=== PATIENT | female | born 1995 | race Caucasian/White ===

== ENCOUNTER → 2017-12-12 | Outpatient (REF) | payer OTHER | LOC: M LAB REF 12:14 | DX: B37.84 Candidal otitis externa (principal) ==

== ENCOUNTER 2018-04-27 11:44 | Inpatient (IN) | payer OTHER ==
[2018-04-27 13:23] LABS: BASO % 0.1 % (0.0-1.0); EOS # 0.2 10^3/uL (0.0-0.50); EOS % 1.6 % (0.0-3.0); HEMATOCRIT 40.9 % (36.0-47.0); HEMOGLOBIN 14.5 g/dl (12.0-15.5); IMMATURE GRANULOCYTE % 0.5 % (0-3.0); LYMPH # 2.5 10^3/uL (1.5-6.5); LYMPH % 17.3 % (24.0-44.0); MEAN CORPUSCULAR HEMOGLOBIN 32.2 pg (27.0-33.0); MEAN CORPUSCULAR HGB CONC 35.5 g/dl (32.0-36.5); MEAN CORPUSCULAR VOLUME 90.7 fl (80.0-96.0); MONO # 0.8 10^3/uL (0.0-0.8); MONO % 5.3 % (0.0-5.0); NEUTROPHILS # 10.7 10^3/uL (1.8-7.7); NEUTROPHILS % 75.2 % (36.0-66.0); PLATELET COUNT, AUTOMATED 204 10^3/uL (150-450); RED BLOOD COUNT 4.51 10^6/uL (4.00-5.40); RED CELL DISTRIBUTION WIDTH 12.3 % (11.5-14.5); WHITE BLOOD COUNT 14.3 10^3/uL (4.0-10.0)
[2018-04-27] MEDS ORDERED: FENTANYL 2MCG/ML ROPIVACAINE 0.2% IN 0.9% NACL 200ML IVBAG As Ordered (14:40)
[2018-04-27] MEDS ORDERED: OXYTOCIN 30 UNITS IN 0.9% NaCl 500ML IV BAG (J2590) As Ordered (14:41)
[2018-04-27] MEDS: OXYTOCIN DRIP 30 UNITS in APPROPRIATE DILUENT 1 EA IV (15:43)
[2018-04-27] MEDS: LIDOCAINE 1% MDV 20ML VIAL SC (15:43)
[2018-04-27] MEDS ORDERED: DOCUSATE SODIUM 100 MG CAP PO (15:45)
[2018-04-27] MEDS ORDERED: RHOGAM 300 MCG (1500 IU) INJ (J2790) IM (15:45)
[2018-04-27] MEDS: MORPHINE 10 MG/ML 1ML VIAL (J2270) IV (15:45)
[2018-04-27] MEDS ORDERED: DIBUCAINE 1% OINTMENT 30GM TOP (15:45)
[2018-04-27] MEDS ORDERED: ONDANSETRON 4MG/2ML VIAL (J2405) IV ×2 (15:45→21:30)
[2018-04-27] MEDS ORDERED: MEASLES,MUMPS,RUBELLA VACCINE INJ (MMR-II) (90707) SC (15:45)
[2018-04-27] MEDS: METHYLERGONOVINE MALEATE 0.2 MG/ML VIAL (J2210) IM (18:52)
[2018-04-27] MEDS ORDERED: MIDAZOLAM INJ 2 MG/2 ML VIAL (J2250) As Ordered (19:41)
[2018-04-27] MEDS ORDERED: PROPOFOL 200 MG/20 ML VIAL As Ordered (19:41)
[2018-04-27] MEDS ORDERED: fentaNYL 100 MCG/2 ML INJECTION (J3010) As Ordered (19:42)
[2018-04-27] MEDS ORDERED: LIDOCAINE 2% W/EPIN INJ 20ML **PRES FREE As Ordered (19:48)
[2018-04-27] MEDS: ceFAZolin 1GM INJ (J0690 PER 500MG) As Ordered (19:57)
[2018-04-27] MEDS ORDERED: ceFAZolin SOD 1 GM in D5W MINI-BAG PLUS 50 ML IV (20:00)
[2018-04-27] MEDS ORDERED: OXYTOCIN INJ 10 UNITS/ML VIAL (J2590) As Ordered ×3 (20:13→20:14)
[2018-04-27] MEDS: ESTROGENS VAGINAL CREAM 30GM As Ordered (20:52)
[2018-04-27] MEDS: LR 1,000 ML IV (21:30)
[2018-04-27] MEDS ORDERED: fentaNYL 100 MCG/2 ML INJECTION (J3010) IV (21:30)
[2018-04-27] MEDS: diphenhydrAMINE 25 MG CAP PO (22:56)
[2018-04-27] MEDS: ACETAMINOPHEN TAB 650MG DOSE (2X325MG) PO (22:57)
[2018-04-28 01:11] LABS: IMMEDIATE SPIN CROSSMATCH 1 2
[2018-04-28] MEDS: ceFAZolin SOD 1 GM in D5W MINI-BAG PLUS 50 ML IV ×2 (04:45→13:09)
[2018-04-28] MEDS: IBUPROFEN 800 MG TAB PO ×2 (06:27→19:58)
[2018-04-28 06:34] LABS: MEAN CORPUSCULAR HEMOGLOBIN 30.9 pg (27.0-33.0); MEAN CORPUSCULAR HGB CONC 35.2 g/dl (32.0-36.5); MEAN CORPUSCULAR VOLUME 87.9 fl (80.0-96.0); PLATELET COUNT, AUTOMATED 165 10^3/uL (150-450); RED CELL DISTRIBUTION WIDTH 13.2 % (11.5-14.5); WHITE BLOOD COUNT 14.1 10^3/uL (4.0-10.0)
[2018-04-28 06:45] LABS: HEMOGLOBIN 10.2 g/dl (12.0-15.5)
[2018-04-28] MEDS: PRENATAL VITAMINS CHEWABLE TABLET PO (10:38)
[2018-04-28] MEDS: ACETAMINOPHEN 500 MG TAB PO (18:47)
[2018-04-29] MEDS: IBUPROFEN 800 MG TAB PO (04:24)
[2018-04-29] MEDS: PRENATAL VITAMINS CHEWABLE TABLET PO (08:19)
== END 2018-04-29 13:00 | disposition home or self-care (01) | DRG 774 ==
LOC: M LDO 11:44 → M LDI 12:39 → M OBS 17:06
PROVIDERS: Obstetrics & Gynecology
PROC: 10E0XZZ Delivery of Products of Conception, External Approach (ICD-10-PCS; principal; 2018-04-27 19:50)
PROC: 0UQC7ZZ Repair Cervix, Via Natural or Artificial Opening (ICD-10-PCS; 2018-04-27 19:50)
PROC: 0HQ9XZZ Repair Perineum Skin, External Approach (ICD-10-PCS; 2018-04-27 19:50)
PROC: 0UC97ZZ Extirpation of Matter from Uterus, Via Natural or Artificial Opening (ICD-10-PCS; 2018-04-27 19:50)
PROC: 30233N1 Transfusion of Nonautologous Red Blood Cells into Peripheral Vein, Percutaneous Approach (ICD-10-PCS; 2018-04-27 19:50)
DX: O48.0 Post-term pregnancy (principal); O72.1 Other immediate postpartum hemorrhage; O71.3 Obstetric laceration of cervix; Z3A.40 40 weeks gestation of pregnancy; O32.6XX0 Maternal care for compound presentation, not applicable or unspecified; O70.0 First degree perineal laceration during delivery; Z37.0 Single live birth

== ENCOUNTER → 2018-12-04 | Outpatient (REF) | payer OTHER ==
[~2018-12-04] MED LIST: ANUS2.5C2 TOP; COLA100C5 PO; DIBU1OIN TOP; DOCU10CA PO; IBUP-1114 PO; IBUP600T42 PO; IRON50TA PO; KEFL500C17 PO; MAPA500T2 PO; VITA1TAB23 PO; VITAPRTA PO
== END ==
LOC: M LAB REF 16:25
PROVIDERS: ATTEND Physician Assistant
DX: R30.0 Dysuria (principal)

== ENCOUNTER → 2019-03-03 | Outpatient (REF) | payer OTHER ==
[2019-03-03 23:18] LABS: CHLAMYDIA DNA AMPLIFICATION NEGATIVE (NEGATIVE); GC DNA AMPLIFICATION NEGATIVE (NEGATIVE)
== END ==
LOC: M SFHCLERA 10:41
PROVIDERS: ATTEND Nurse Practitioner Family
DX: R30.0 Dysuria (principal)